=== PATIENT | male | born 1985 | race Hispanic/Latino ===

== ENCOUNTER 2019-10-16 07:49 | Emergency (ER) | payer OTHER ==
[2019-10-16] MEDS ORDERED: KETOROLAC 30 MG/ML INJ ONE (08:19)
[2019-10-16] MEDS ORDERED: NA CHLORIDE 0.9% 500 ML ONE (08:19)
[2019-10-16 08:22] LABS: Urine Blood 1+ (NEG); Urine Glucose NEGATIVE (NEG); Urine Protein NEGATIVE (NEG)
[2019-10-16 08:28] LABS: Absolute Lymphocytes (CBC) 2.5 K/uL (0.7-4.9); Basophils % 0.4 % (0-1.3); Hematocrit 40.9 % (39.6-49.0); MPV 7.7 fL (7.6-11.3); RBC Red Blood Cell Count 4.95 M/uL (4.33-5.43)
[2019-10-16 08:48] LABS: ALT/SGPT 45 U/L (12-78); AST/SGOT 20 U/L (15-37); Albumin 3.6 g/dL (3.4-5.0); Alkaline Phosphatase 64 U/L (45-117); BUN Blood Urea Nitrogen 15 mg/dL (7-18); Bicarbonate 25 mmol/L (21-32); Bilirubin Direct < 0.1 mg/dL (0-0.2); Bilirubin Total 0.4 mg/dL (0.2-1.0); Glucose Level 113 mg/dL (74-106); Potassium 3.8 mmol/L (3.5-5.1); Protein, Total 7.4 g/dL (6.4-8.2); Sodium Level 142 mmol/L (136-145)
--- NOTE | 2019-10-16 08:50 | RAD REPORT ---
EXAM DESCRIPTION: CT - Stone Protocol - 10/16/2019 8:42 am CLINICAL HISTORY: Flank pain. RLQ PAIN COMPARISON: No comparisons TECHNIQUE: Axial images were obtained without oral or IV contrast. Lack of contrast limits solid org an and vascular assessment. The [id number] spans the entirety of the system partially obscuring uppermost abdomen and lung bases. Coronal reformatted images were obtained and reviewed. All CT scans are performed using dose optimization technique as appropriate and may include automated exposure control or mA/KV adjustment according to patient size. FINDINGS: The lower lung muñoz are clear. Imaged portions of the liver and spleen show no suspicious findings on non-contrast imaging. The panc reas and adrenal glands are normal. No pathologic lymphadenopathy in the abdomen or pelvis. 2 mm stone is present right UVJ resulting mild right hydronephrosis. Additional caliceal stones are p resent inferior left kidney, largest measuring 4 mm. No left-sided hydronephrosis. No bowel obstruction, free air, free fluid or abscess. Normal appendix noted. No significant bony abnormality. IMPRESSION: 2 mm stone right UVJ resulting in mild right hydronephrosis. Left nephrolithiasis without hydronephrosis.
[2019-10-16 09:28] VITALS: TEMP 98.6
[2019-10-16 09:31] VITALS: BP 112/60; O2SAT 99
--- NOTE | 2019-10-18 17:47 | ER ---
Nurse's Notes [facility] Name: Benny Baldwin Age: 34 yrs Sex: Male : 1985 Arrival Date: 10/16/2019 Time: 07:50 Bed 6 Private MD: Diagnosis: 2 mm left renal calculi at UVJ Presentation: 10/15 07:59 Chief complaint: Patient states: sharp pain to R side and RLQ since 0500 this morning. ch hx of kidney stones, feels like one. reports urinary frequency and drippling. Coronavirus screen: Proceed with normal triage. Patient denies a cough. Patient denies shortness of breath or difficulty breathing. Patient denies measured and/or subjective temperature greater than 100.4F prior to today's visit. Patient denies travel on a cruise ship or to a country the [facility] currently lists as an affected area. Patient denies contact with known and/or suspected case of COVID-19. Ebola Screen: Patient negative for fever greater than or equal to 101.5 degrees Fahrenheit, and additional compatible Ebola Virus Disease symptoms Patient denies exposure to infectious person. Patient denies travel to an Ebola-affected area in the 21 days before illness onset. No symptoms or risks identified at this time. Initial Sepsis Screen: Does the patient meet any 2 criteria? No. Patient's initial sepsis screen is negative. Does the patient have a suspected source of infection? No. Patient's initial sepsis screen is negative. Risk Assessment: Do you want to hurt yourself or someone else? Patient reports no desire to harm self or others. Onset of symptoms was October 16, 2019 at 05:00. 07:59 Method Of Arrival: Ambulatory 07:59 Acuity: WILLIAMS 3 Triage Assessment: 08:02 General: Appears uncomfortable, well groomed, Behavior is cooperative, appropriate for age, restless. Pain: Complains of pain in anterior aspect of right lateral abdomen and right lower quadrant Pain currently is 8 out of 10 on a pain scale. Neuro: No deficits noted. Cardiovascular: No deficits noted. Denies chest pain, shortness of breath. Respiratory: Airway is patent Respiratory effort is even, unlabored, Breath sounds are clear bilaterally. GI: Abdomen is round non-distended, Bowel sounds present X 4 quads. Abd is soft and non tender X 4 quads. Reports lower abdominal pain. : Reports pain in right flank(s), lower quadrant(s) urgency, urinary frequency. Derm: Skin is clammy, Skin is pale, Skin temperature is warm. Musculoskeletal: No signs and/or symptoms reported regarding the musculoskeletal system. Historical: - Allergies: 08:02 No Known Allergies; ch - Home Meds: 08:02 Buscapina- from [place] [Active]; ch - PMHx: 08:02 Kidney stones; ch - PSHx: 08:02 Tonsillectomy; ch - Immunization history:: Adult Immunizations up to date, Flu vaccine is not up to date. - Social history:: Smoking status: Patient denies any tobacco usage or history of. Patient/guardian denies using alcohol, street drugs. Screenin:05 Abuse screen: Denies threats or abuse. Denies injuries from another. Nutritional ch screening: No deficits noted. Tuberculosis screening: No symptoms or risk factors identified. Fall Risk None identified. Assessment: 08:05 Reassessment: Patient appears in no apparent distress at this time. Patient and/or ch family updated on plan of care and expected duration. Pain level reassessed. 08:41 Reassessment: Patient appears in no apparent distress at this time. Patient and/or ch family updated on plan of care and expected duration. Pain level reassessed. Patient is alert, oriented x 3, equal unlabored respirations, skin warm/dry/pink. pt returned from CT, states he feels much better. Patient states feeling better. Patient states symptoms have improved. 09:05 Reassessment: physician in room to reassess patient, discuss results and plan of care with pt. pt verb understanding. 09:20 Reassessment: Patient appears in no apparent distress at this time. Patient and/or sv family updated on plan of care and expected duration. Pain level reassessed. Patient is alert, oriented x 3, equal unlabored respirations, skin warm/dry/pink. Patient states feeling better. Patient states symptoms have improved. Vital Signs: 07:59 BP 144 / 97; Pulse 77; Resp 20; Temp 98.6; Pulse Ox 99% on R/A; Weight 86.18 kg; Height 5 ft. 7 in. (170.18 cm); Pain 8/10; 08:41 BP 120 / 68; Pulse 69; Resp 15; Pulse Ox 96% on R/A; Pain 1/10; ch 09:19 BP 112 / 60; Pulse 67; Resp 16; Pulse Ox 99% ; sv 07:59 Body Mass Index 29.76 (86.18 kg, 170.18 cm) ED Course: 07:50 Patient arrived in ED. as 07:53 Calin Mobley MD is Attending Physician. kdr 07:59 Guillermina Andres, CHEPE is Primary Nurse. ch 08:01 Triage completed. ch 08:02 Arm band placed on left wrist. Patient placed in an exam room, on a stretcher, on pulse ch oximetry. 08:05 Patient has correct armband on for positive identification. Bed in low position. Call light in reach. Side rails up X 1. Adult w/ patient. Pulse ox on. NIBP on. 08:05 No provider procedures requiring assistance completed. ch 08:15 Inserted saline lock: 18 gauge in left antecubital area, using aseptic technique. Blood ch collected. 08:17 Urine Dipstick--Ancillary (enter results) Sent[facility] 08:18 Urine collected: clean catch specimen, clear[facility] 08:21 Basic Metabolic Panel Sent. ch 08:41 CT completed. Patient tolerated procedure well. Patient moved back from CT. 08:41 Door closed. Noise minimized. Lights dimmed. Warm blanket given. ch 08:42 CT Stone Protocol In Process Unspecified. EDMS 08:55 Awaiting re-evaluation by ER provider. sv 09:06 Arabella Pretty MD is Referral Physician. kdr 09:20 IV discontinued, intact, bleeding controlled, No redness/swelling at site. Pressure sv dressing applied. Administered Medications: 08:17 Drug: NS 0.9% 500 ml Route: IV; Rate: bolus; Site: left antecubital; ch 08:42 Follow up: IV Status: Completed infusion; IV Intake: 500ml ch 08:18 Drug: TORadol - Ketorolac 15 mg Route: IVP; Site: left antecubital; ch 08:42 Follow up: Response: No adverse reaction; Pain is decreased ch Intake: 08:42 IV: 500ml; Total: 500ml. ch Outcome: 09:07 Discharge ordered by . kdr 09:20 Discharged to home ambulatory. sv 09:20 Condition: stable 09:20 Condition: improved 09:20 Discharge instructions given to patient, Instructed on discharge instructions, follow up and referral plans. no drinking with medication, no driving heavy equipment, medication usage, increase fluid intake Demonstrated understanding of instructions, follow-up care, medications, increase fluid intake Prescriptions given X 4. 09:21 Patient left the ED. sv Signatures: Dispatcher [employer] EDMS Guillermina Andres RN RN ch Verde, Stephanie, RN RN sv Rittger, Kevin, MD MD kdr Quilty, Betty bq Martinez, Amelia as Martinez, Maria [facility]
--- NOTE | 2019-10-18 17:48 | EDPHYS ---
Physician Documentation [facility] Name: Benny Baldwin Age: 34 yrs Sex: Male : 1985 Arrival Date: 10/16/2019 Time: 07:50 Bed 6 Private MD: ED Physician Calin Mobley HPI: 10/15 08:21 This 34 yrs old Male presents to ER via Ambulatory with complaints of Possible kdr Kidney Stone. 08:21 The patient presents with abdominal pain right lower quadrant. Onset: The kdr symptoms/episode began/occurred gradually, 3 day(s) ago. The symptoms radiate to shaft of penis. Associated signs and symptoms: Pertinent positives: nausea. The symptoms are described as achy, crampy, vague, waxing/waning. Modifying factors: The symptoms are alleviated by nothing, the symptoms are aggravated by movement, walking. Severity of pain: At its worst the pain was moderate just prior to arrival, in the emergency department the pain is unchanged. The patient has not experienced similar symptoms in the past. The patient has not recently seen a physician. Historical: - Allergies: 08:02 No Known Allergies; ch - Home Meds: 08:02 Buscapina- from [place] [Active]; ch - PMHx: 08:02 Kidney stones; ch - PSHx: 08:02 Tonsillectomy; ch - Immunization history:: Adult Immunizations up to date, Flu vaccine is not up to date. - Social history:: Smoking status: Patient denies any tobacco usage or history of. Patient/guardian denies using alcohol, street drugs. ROS: 08:21 Constitutional: Negative for fever, chills, and weight loss, Eyes: Negative for injury, kdr pain, redness, and discharge, ENT: Negative for injury, pain, and discharge, Neck: Negative for injury, pain, and swelling, Cardiovascular: Negative for chest pain, palpitations, and edema, Respiratory: Negative for shortness of breath, cough, wheezing, and pleuritic chest pain, Back: Negative for injury and pain, : Negative for injury, bleeding, discharge, and swelling, MS/Extremity: Negative for injury and deformity, Skin: Negative for injury, rash, and discoloration, Neuro: Negative for headache, weakness, numbness, tingling, and seizure activity. Psych: Negative for depression, anxiety, suicide ideation, homicidal ideation, and hallucinations, Allergy/Immunology: Negative for hives, rash, and allergies, Endocrine: Negative for neck swelling, polydipsia, polyuria, polyphagia, and marked weight changes, Hematologic/Lymphatic: Negative for swollen nodes, abnormal bleeding, and unusual bruising. 08:21 Abdomen/GI: Positive for abdominal pain, nausea, Negative for diarrhea, constipation, abdominal distension, black/tarry stool, rectal pain, rectal bleeding, bowel incontinence. Exam: 08:21 Constitutional: This is a well developed, well nourished patient who is awake, alert, kdr and in no acute distress. Head/Face: Normocephalic, atraumatic. Eyes: Pupils equal round and reactive to light, extra-ocular motions intact. Lids and lashes normal. Conjunctiva and sclera are non-icteric and not injected. Cornea within normal limits. Periorbital areas with no swelling, redness, or edema. Neck: Trachea midline, no thyromegaly or masses palpated, and no cervical lymphadenopathy. Supple, full range of motion without nuchal rigidity, or vertebral point tenderness. No Meningismus. Chest/axilla: Normal chest wall appearance and motion. Nontender with no deformity. No lesions are appreciated. Cardiovascular: Regular rate and rhythm with a normal S1 and S2. No gallops, murmurs, or rubs. Normal PMI, no JVD. No pulse deficits. Respiratory: Lungs have equal breath sounds bilaterally, clear to auscultation and percussion. No rales, rhonchi or wheezes noted. No increased work of breathing, no retractions or nasal flaring. Back: No spinal tenderness. No costovertebral tenderness. Full range of motion. Skin: Warm, dry with normal turgor. Normal color with no rashes, no lesions, and no evidence of cellulitis. MS/ Extremity: Pulses equal, no cyanosis. Neurovascular intact. Full, normal range of motion. Neuro: Awake and alert, GCS 15, oriented to person, place, time, and situation. Cranial nerves II-XII grossly intact. Motor strength 5/5 in all extremities. Sensory grossly intact. Cerebellar exam normal. Normal gait. Psych: Awake, alert, with orientation to person, place and time. Behavior, mood, and affect are within normal limits. 08:21 Abdomen/GI: Inspection: abdomen appears normal, Bowel sounds: normal, Palpation: soft, mild abdominal tenderness, in the right lower quadrant, mass, is not appreciated, rebound tenderness, is not appreciated. Vital Signs: 07:59 BP 144 / 97; Pulse 77; Resp 20; Temp 98.6; Pulse Ox 99% on R/A; Weight 86.18 kg; Height ch 5 ft. 7 in. (170.18 cm); Pain 8/10; 08:41 BP 120 / 68; Pulse 69; Resp 15; Pulse Ox 96% on R/A; Pain 1/10; ch 09:19 BP 112 / 60; Pulse 67; Resp 16; Pulse Ox 99% ; sv 07:59 Body Mass Index 29.76 (86.18 kg, 170.18 cm) ch MDM: 08:21 Data reviewed: vital signs, nurses notes, lab test result(s), radiologic studies. kdr Counseling: I had a detailed discussion with the patient and/or guardian regarding: the historical points, exam findings, and any diagnostic results supporting the discharge/admit diagnosis, lab results, radiology results. 09:07 Patient medically screened. kdr 09:10 Differential diagnosis: appendicitis, bowel obstruction, non-specific abd pain, kdr Pyelonephritis, Ureterolithiasis. ED course: The patient was stable and much improved at time of discharge. He was happy with the care provided and the plan for discharge and follow-up. 10/15 08:08 Order name: Basic Metabolic Panel; Complete Time: 08:50 kdr 10/15 08:08 Order name: CBC with Diff; Complete Time: 08:50 kdr 10/15 08:08 Order name: Hepatic Function; Complete Time: 08:50 kdr 10/15 08:08 Order name: CT Stone Protocol; Complete Time: 08:58 kdr 10/15 08:10 Order name: Urine Dipstick--Ancillary (enter results); Complete Time: 08:50 eb 10/15 08:08 Order name: IV Saline Lock; Complete Time: 08:16 kdr 10/15 08:08 Order name: Labs collected and sent; Complete Time: 08:16 kdr 10/15 08:08 Order name: Urine Dipstick-Ancillary (obtain specimen); Complete Time: 08:16 kdr Administered Medications: 08:17 Drug: NS 0.9% 500 ml Route: IV; Rate: bolus; Site: left antecubital; 08:42 Follow up: IV Status: Completed infusion; IV Intake: 500ml 08:18 Drug: TORadol - Ketorolac 15 mg Route: IVP; Site: left antecubital; 08:42 Follow up: Response: No adverse reaction; Pain is decreased Disposition: 10/16/19 09:07 Discharged to Home. Impression: 2 mm left renal calculi at UVJ. - Condition is Stable. - Prescriptions for Tylenol- Codeine #3 300-30 mg Oral Tablet - take 2 tablet by ORAL route every 6 hours As needed; 6 tablet. Zofran 4 mg Oral Tablet - take 1 tablet by ORAL route every 12 hours As needed; 6 tablet. Flomax 0.4 mg Oral Capsule, Sust. Release 24 hr - take 1 capsule by ORAL route once daily 1/2 hour following the same meal each day; 30 capsule. Bactrim DS 800- 160 mg Oral Tablet - take 1 tablet by ORAL route every 12 hours for 3 days; 6 tablet. - Medication Reconciliation Form, Thank You Letter, Antibiotic Education, Prescription Opioid Use form. - Follow up: Private Physician; When: 2 - 3 days; Reason: If symptoms return, Further diagnostic work-up, Recheck today's complaints, Continuance of care, Re-evaluation by your physician. Follow up: Arabella Pretty MD; When: 2 - 3 days; Reason: If symptoms return, Further diagnostic work-up, Recheck today's complaints, Continuance of care, Re-evaluation by your physician. - Problem is new. - Symptoms have improved. Signatures: Dispatcher [employer] EDVA Guillermina Andres RN RN Samantha Knox RN RN Calin Mobley MD MD [facility] Corrections: (The following items were deleted from the chart) 09:21 09:07 10/16/2019 09:07 Discharged to Home. Impression: 2 mm left renal calculi at UVJ. sv Condition is Stable. Forms are Medication Reconciliation Form, Thank You Letter, Antibiotic Education, Prescription Opioid Use. Follow up: Private Physician; When: 2 - 3 days; Reason: If symptoms return, Further diagnostic work-up, Recheck today's complaints, Continuance of care, Re-evaluation by your physician. Follow up: Philmore Sukhwinder; When: 2 - 3 days; Reason: If symptoms return, Further diagnostic work-up, Recheck today's complaints, Continuance of care, Re-evaluation by your physician. Problem is new. Symptoms have improved. kdr
== END 2019-10-16 09:21 | disposition home or self-care (01) ==
LOC: ER 07:49
DX: N20.0 Calculus of kidney (principal); Z87.442 Personal history of urinary calculi
CPT/HCPCS: 85025; 80048; 36415; 80076; 81003; 76377; 74176; 96374; 99284; J7040

== ENCOUNTER 2019-10-17 07:36 | Emergency (ER) | payer OTHER ==
[2019-10-17] MEDS ORDERED: KETOROLAC 30 MG/ML INJ ONE (08:41)
--- NOTE | 2019-10-17 09:38 | RAD REPORT ---
EXAM DESCRIPTION: RAD - Abdomen 1 View (KUB) - 10/17/2019 8:53 am CLINICAL HISTORY: Right Abdomen pain. FINDINGS: The bowel gas pattern is unremarkable. Patient's previously described 2 millimeter right UVJ calculus on cat scan October 15 is not visualized o n this examination. Left renal calculi are seen
[2019-10-17 10:29] VITALS: BP 118/72; TEMP 97.9; O2SAT 99
--- NOTE | 2019-10-18 18:47 | ER ---
Nurse's Notes [facility] Name: Benny Baldwin Age: 34 yrs Sex: Male : 1985 Arrival Date: 10/17/2019 Time: 07:37 Bed 4 Private MD: Diagnosis: Torticollis Presentation: 10/16 08:15 Chief complaint: Patient states: was diagnosed with kidney stone yesterday, has been iw taking his meds but is still having a lot of pain on right side. Coronavirus screen: Proceed with normal triage. Patient denies a cough. Patient denies shortness of breath or difficulty breathing. Patient denies measured and/or subjective temperature greater than 100.4F prior to today's visit. Patient denies travel on a cruise ship or to a country the [facility] currently lists as an affected area. Patient denies contact with known and/or suspected case of COVID-19. Ebola Screen: Patient negative for fever greater than or equal to 101.5 degrees Fahrenheit, and additional compatible Ebola Virus Disease symptoms Patient denies exposure to infectious person. Patient denies travel to an Ebola-affected area in the 21 days before illness onset. No symptoms or risks identified at this time. Initial Sepsis Screen: Does the patient meet any 2 criteria? No. Patient's initial sepsis screen is negative. Does the patient have a suspected source of infection? No. Patient's initial sepsis screen is negative. Risk Assessment: Do you want to hurt yourself or someone else? Patient reports no desire to harm self or others. Onset of symptoms was October 17, 2019. 08:15 Method Of Arrival: Ambulatory iw 08:15 Acuity: WILLIAMS 3 iw Historical: - Allergies: 08:17 No Known Allergies; iw - Home Meds: 08:17 None [Active]; iw - PMHx: 08:17 Kidney stones; iw - PSHx: 08:17 Tonsillectomy; iw - Immunization history:: Adult Immunizations up to date. - Social history:: Smoking status: Patient denies any tobacco usage or history of. Screenin:35 Abuse screen: Denies threats or abuse. Denies injuries from another. Nutritional sv screening: No deficits noted. Tuberculosis screening: No symptoms or risk factors identified. Fall Risk None identified. Assessment: 08:35 General: Appears in no apparent distress. comfortable, well groomed, well developed, sv Behavior is calm, cooperative, appropriate for age. Pain: Complains of pain in right lower quadrant Pain currently is 7 out of 10 on a pain scale. Pain began 1 day ago. Is continuous. Neuro: Level of Consciousness is awake, alert, obeys commands, Oriented to person, place, time, situation, Moves all extremities. Full function Gait is steady, Speech is normal. Respiratory: Airway is patent Respiratory effort is even, unlabored, Respiratory pattern is regular, symmetrical. GI: Abdomen is flat, Reports lower abdominal pain, nausea, vomiting. Derm: Skin is intact, Skin is pink, warm \T\ dry. 10:20 Reassessment: Patient appears in no apparent distress at this time. Patient and/or ph family updated on plan of care and expected duration. Pain level reassessed. Patient is alert, oriented x 3, equal unlabored respirations, skin warm/dry/pink. Patient states feeling better. Patient states symptoms have improved. Vital Signs: 08:15 BP 121 / 78; Pulse 78; Resp 16; Temp 97.7; Pulse Ox 100% on R/A; Weight 81.65 kg; iw Height 5 ft. 5 in. (165.10 cm); Pain 7/10; 10:20 BP 118 / 72; Pulse 76; Resp 18; Temp 97.9; Pulse Ox 99% on R/A; Pain 1/10; ph 08:15 Body Mass Index 29.95 (81.65 kg, 165.10 cm) iw ED Course: 07:37 Patient arrived in ED. as 07:55 Calin Mobley MD is Attending Physician. kdr 08:16 Triage completed. iw 08:17 Arm band placed on. iw 08:19 Samantha Knox, CHEPE is Primary Nurse. sv 08:19 Patient has correct armband on for positive identification. sv 08:35 Pulse ox on. NIBP on. Door closed. Head of bed elevated. sv 08:35 Inserted saline lock: 20 gauge in right antecubital area, using aseptic technique. sv Blood collected. Flushed right antecubital with 5 ml normal saline. 08:39 Awaiting for x-ray. sv 08:53 Abdomen 1 View (KUB) XRAY In Process Unspecified. EDMS 09:22 Awaiting radiology results. sv 10:00 Leighton Rocha DO is Referral Physician. kdr 10:21 No provider procedures requiring assistance completed. IV discontinued, intact, ph bleeding controlled, No redness/swelling at site. Pressure dressing applied. Administered Medications: 08:37 Drug: TORadol - Ketorolac 15 mg Route: IVP; Site: right antecubital; sv 10:21 Follow up: Response: No adverse reaction; Pain is decreased ph Outcome: 10:01 Discharge ordered by . kdr 10:21 Discharged to home ambulatory. ph 10:21 Condition: good 10:21 Discharge instructions given to patient, Instructed on discharge instructions, follow up and referral plans. medication usage, Demonstrated understanding of instructions, follow-up care, medications, Prescriptions given X 1. 10:21 Patient left the ED. ph Signatures: Dispatcher [employer] Samantha Sellers RN RN Calin Garcia MD MD kdr Martinez, Amelia as Williams, Irene, RN RN Mary Hicks RN RN ph
--- NOTE | 2019-10-18 18:47 | EDPHYS ---
Physician Documentation [facility] Name: Benny Baldwin Age: 34 yrs Sex: Male : 1985 Arrival Date: 10/17/2019 Time: 07:37 Bed 4 Private MD: ED Physician Calin Mobley HPI: 10/16 08:35 This 34 yrs old Male presents to ER via Ambulatory with complaints of Flank kdr Pain - kidney stone. 08:35 The patient presents with abdominal pain right lower quadrant. Onset: The kdr symptoms/episode began/occurred this morning, at 02:30. The symptoms do not radiate. Associated signs and symptoms: Pertinent positives: nausea and vomiting, Pertinent negatives: anorexia, chest pain, constipation, diarrhea, dysuria, fever, headache, hematuria, shortness of breath, testicular pain, vomiting blood. The symptoms are described as achy, sharp. Modifying factors: The symptoms are alleviated by nothing, the symptoms are aggravated by nothing. Severity of pain: At its worst the pain was moderate severe just prior to arrival, this morning, in the emergency department the pain has improved mildly. The patient has experienced similar episodes in the past, but today's symptoms are worse. The patient has been recently seen at the [facility] Emergency Department, yesterday. Historical: - Allergies: 08:17 No Known Allergies; iw - Home Meds: 08:17 None [Active]; iw - PMHx: 08:17 Kidney stones; iw - PSHx: 08:17 Tonsillectomy; iw - Immunization history:: Adult Immunizations up to date. - Social history:: Smoking status: Patient denies any tobacco usage or history of. ROS: 08:35 Constitutional: Negative for fever, chills, and weight loss, Eyes: Negative for injury, kdr pain, redness, and discharge, ENT: Negative for injury, pain, and discharge, Neck: Negative for injury, pain, and swelling, Cardiovascular: Negative for chest pain, palpitations, and edema, Respiratory: Negative for shortness of breath, cough, wheezing, and pleuritic chest pain, Back: Negative for injury and pain, : Negative for injury, bleeding, discharge, and swelling, MS/Extremity: Negative for injury and deformity, Skin: Negative for injury, rash, and discoloration, Neuro: Negative for headache, weakness, numbness, tingling, and seizure activity. Psych: Negative for depression, anxiety, suicide ideation, homicidal ideation, and hallucinations, Allergy/Immunology: Negative for hives, rash, and allergies, Endocrine: Negative for neck swelling, polydipsia, polyuria, polyphagia, and marked weight changes, Hematologic/Lymphatic: Negative for swollen nodes, abnormal bleeding, and unusual bruising. 08:35 Abdomen/GI: Positive for abdominal pain, nausea and vomiting, Negative for constipation, abdominal cramps, abdominal distension, anorexia, dysphagia, hematemesis, black/tarry stool, rectal pain, rectal bleeding, bowel incontinence. Exam: 08:35 Constitutional: This is a well developed, well nourished patient who is awake, alert, kdr and in no acute distress. Head/Face: Normocephalic, atraumatic. Eyes: Pupils equal round and reactive to light, extra-ocular motions intact. Lids and lashes normal. Conjunctiva and sclera are non-icteric and not injected. Cornea within normal limits. Periorbital areas with no swelling, redness, or edema. Neck: Trachea midline, no thyromegaly or masses palpated, and no cervical lymphadenopathy. Supple, full range of motion without nuchal rigidity, or vertebral point tenderness. No Meningismus. Chest/axilla: Normal chest wall appearance and motion. Nontender with no deformity. No lesions are appreciated. Cardiovascular: Regular rate and rhythm with a normal S1 and S2. No gallops, murmurs, or rubs. Normal PMI, no JVD. No pulse deficits. Respiratory: Lungs have equal breath sounds bilaterally, clear to auscultation and percussion. No rales, rhonchi or wheezes noted. No increased work of breathing, no retractions or nasal flaring. Back: No spinal tenderness. No costovertebral tenderness. Full range of motion. Skin: Warm, dry with normal turgor. Normal color with no rashes, no lesions, and no evidence of cellulitis. MS/ Extremity: Pulses equal, no cyanosis. Neurovascular intact. Full, normal range of motion. Neuro: Awake and alert, GCS 15, oriented to person, place, time, and situation. Cranial nerves II-XII grossly intact. Motor strength 5/5 in all extremities. Sensory grossly intact. Cerebellar exam normal. Normal gait. Psych: Awake, alert, with orientation to person, place and time. Behavior, mood, and affect are within normal limits. 08:35 Abdomen/GI: Inspection: abdomen appears normal, Bowel sounds: active, Palpation: soft, Minimally tender in RLQ, rebound tenderness, is not appreciated. Vital Signs: 08:15 BP 121 / 78; Pulse 78; Resp 16; Temp 97.7; Pulse Ox 100% on R/A; Weight 81.65 kg; iw Height 5 ft. 5 in. (165.10 cm); Pain 7/10; 10:20 BP 118 / 72; Pulse 76; Resp 18; Temp 97.9; Pulse Ox 99% on R/A; Pain 1/10; ph 08:15 Body Mass Index 29.95 (81.65 kg, 165.10 cm) iw MDM: 08:35 Data reviewed: vital signs, nurses notes, lab test result(s), radiologic studies. kdr Counseling: I had a detailed discussion with the patient and/or guardian regarding: the historical points, exam findings, and any diagnostic results supporting the discharge/admit diagnosis, lab results, radiology results, the need for outpatient follow up. 10:01 Patient medically screened. kdr 10/16 08:22 Order name: Abdomen 1 View (KUB) XRAY; Complete Time: 09:48 kdr Administered Medications: 08:37 Drug: TORadol - Ketorolac 15 mg Route: IVP; Site: right antecubital; sv 10:21 Follow up: Response: No adverse reaction; Pain is decreased ph Disposition: 10/17/19 10:01 Discharged to Home. Impression: Torticollis. - Condition is Stable. - Discharge Instructions: Kidney Stones, [id number], Dietary Guidelines to Help Prevent Kidney Stones. - Prescriptions for Tylenol- Codeine #3 300-30 mg Oral Tablet - take 2 tablet by ORAL route every 6 hours As needed; 6 tablet. - Medication Reconciliation Form form. - Follow up: Private Physician; When: 2 - 3 days; Reason: If symptoms return, Further diagnostic work-up, Recheck today's complaints, Continuance of care, Re-evaluation by your physician. Follow up: Leighton Rocha DO; When: 2 - 3 days; Reason: If symptoms return, Further diagnostic work-up, Recheck today's complaints, Continuance of care, Re-evaluation by your physician. - Problem is new. - Symptoms have improved. - Notes: Continue with your current medications Signatures: Dispatcher [employer] Samantha Sellers, RN RN Calin Garcia MD MD kdr Williams, Irene, RN RN iw Mary Hicks RN RN ph Corrections: (The following items were deleted from the chart) 10:21 10:01 10/17/2019 10:01 Discharged to Home. Impression: Torticollis. Condition is ph Stable. Forms are Medication Reconciliation Form, Thank You Letter, Antibiotic Education, Prescription Opioid Use. Follow up: Private Physician; When: 2 - 3 days; Reason: If symptoms return, Further diagnostic work-up, Recheck today's complaints, Continuance of care, Re-evaluation by your physician. Follow up: Leighton Rocha; When: 2 - 3 days; Reason: If symptoms return, Further diagnostic work-up, Recheck today's complaints, Continuance of care, Re-evaluation by your physician. Problem is new. Symptoms have improved. kdr
== END 2019-10-17 10:21 | disposition home or self-care (01) ==
LOC: ER 07:36
DX: M43.6 Torticollis (principal); R11.2 Nausea with vomiting, unspecified; Z87.442 Personal history of urinary calculi
CPT/HCPCS: 74018; 96374; 99284